=== PATIENT | female | born 1970 | race Caucasian/White ===

== ENCOUNTER 2025-05-27 14:15 | Outpatient (CLI) | payer OTHER | END 2025-05-27 14:16 | disposition home or self-care (01) | LOC: SCSRAD 14:15 | PROVIDERS: ATTEND Family Medicine | DX: M25.562 Pain in left knee (principal); M25.561 Pain in right knee; M54.2 Cervicalgia; M54.12 Radiculopathy, cervical region | CPT/HCPCS: 72050; 72072 ==